=== PATIENT | male | born 1940 | race Caucasian/White ===

== ENCOUNTER → 2017-01-19 | Outpatient (CLI) | payer OTHER | LOC: FIMAGING 16:04 | PROVIDERS: ATTEND Psychiatry & Neurology Neurology | DX: M51.36 Other intervertebral disc degeneration, lumbar region (principal); G62.9 Polyneuropathy, unspecified; Z98.1 Arthrodesis status ==

== ENCOUNTER → 2018-01-10 | Outpatient (CLI) | payer OTHER | LOC: BHFA 15:30 | PROVIDERS: ATTEND Internal Medicine Cardiovascular Disease | DX: R53.1 Weakness (principal) ==

== ENCOUNTER 2018-06-23 13:48 | Observation (INO) | payer OTHER ==
[2018-06-23] MEDS ORDERED: levOFLOXACIN 500 MG/DEXTROSE 100 ML IV ONE (14:07)
[2018-06-23] MEDS ORDERED: LIDOCAINE 1% 2 ML INJ ID PRN (14:08)
[2018-06-23] MEDS ORDERED: LR 1,000 ML IV ONE (14:08)
[2018-06-23] MEDS ORDERED: LIDOCAINE 2% JELLY 20 ML (UROJECT) ONE (14:48)
[2018-06-23] MEDS ORDERED: IOPAMIDOL (ISOVUE-M 300) 15 ML VIAL ONE (14:48)
--- NOTE | 2018-06-23 15:02 | PDANEPAE ---
ANE History of Present Illness bladder stones, here for cystoscopy and removal stones ANE Past Medical History - Cardiovascular History Hx Hypertension: Yes Hx Arrhythmias: No Hx Chest Pain: No Hx Coronary Artery / Peripheral Vascular Disease: Yes Hx CHF / Valvular Disease: No Hx Palpitations: No - Pulmonary History Hx COPD: No Hx Asthma/Reactive Airway Disease: No Hx Recent Upper Respiratory Infection: No Hx Oxygen in Use at Home: No Hx Sleep Apnea: No Sleep Apnea Screening Result - Last Documented: Negative Pulmonary History Comment: distant history of heavy tobacco use, none for 20 years. 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 cognitive decline in the recent past, no formal diagnoses - Endocrine History Hx Diabetes: No Hypothyroid: No Hyperthyroid: No Obesity: no - Renal History Hx Renal Disorders: Yes Renal History Comment: current kidney stones. hx of bph with green light laser with Melouk - Liver History Hx Hepatic Disorders: No - Neurological & Psychiatric Hx Hx Neurological and Psychiatric Disorders: Yes Neurological / Psychiatric History Comment: anxiety, depression - Cancer History Hx Cancer: No - Congenital Disorder History Hx Congenital Disorders: No - GI History Hx Gastrointestinal Disorders: Yes Gastrointestinal History Comment: hx of coloscopies q3 yrs x 30 yrs for family hx of colon CA. has had colon polyps removed every time last one being 11/2017 - Other Health History Other Health History: wears readers. wet macular degeneration. hearing aides bilaterally. 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 trigger finger release x8. left hand carpal tunnel surgery in 2013. greenlight laser procedure 03/15/2014 with Melouk. colonoscopies q3 yrs for the last 30 yrs. right eye cataract surgery 2014 ANE Review of Systems Review of Systems: - Exercise capacity METS (RN): 4 METS ANE Patient History - Allergies Allergies/Adverse Reactions: acetaminophen [From Percocet] Allergy (Verified 06/22/18 11:14) Vomiting Iodinated Contrast- Oral and IV Dye Allergy (Verified 06/22/18 11:14) lisinopril [From Zestril] Allergy (Verified 06/22/18 11:14) Rash oxycodone [From Percocet] Allergy (Verified 06/22/18 11:14) Vomiting - Home Medications Home Medications: Aflibercept [Eylea] 2 mg IO Q30D 06/17/18 [Last Taken 06/24/17] Carboxymethylcellulose 1% [Refresh Celluvisc (*)] 1 drop EACHEYE DAILY PRN 06/17 [Last Taken 1 Day Ago ~06/22/18] FLUoxetine [Prozac 20 MG (*)] 40 mg PO DAILY 06/17/18 [Last Taken 1 Day Ago ~] - NPO status NPO Since - Liquids (Date): 06/23/18 NPO Since - Liquids (Time): 12:00 NPO Since - Solids (Date): 06/22/18 NPO Since - Solids (Time): 16:00 - Smoking Hx Smoking Status: Former smoker - Family Anes Hx Family Hx Anesthesia Complications: none ANE Labs/Vital Signs - Vital Signs Blood Pressure: 175/94 Heart Rate: 66 Respiratory Rate: 18 O2 Sat (%): 97 Height: 170.18 cm Weight: 76.204 kg ANE Physical Exam - Airway Neck exam: decreased ROM Mallampati Score: Class 3 Mouth exam: normal dental/mouth exam - Pulmonary Pulmonary: no respiratory distress, reduced air movement - Cardiovascular Cardiovascular: regular rate and rhythym - ASA Status ASA Status: III ANE Anesthesia Plan Anesthesia Plan: GA w LMA (Start 18g PIV pre-induction) Total IV Anesthesia: Yes
--- NOTE | 2018-06-23 15:18 | PDHPUP ---
History & Physical Update H&P update statement: This history and physical update is based on an assessment of the patient which was completed after admission or registration (within 24 hours), but prior to the surgery/procedure. H&P update: no change in patient's condition since H&P completed
--- NOTE | 2018-06-23 15:22 | POSTOPPROG ---
Post Op Note Date of Operation: 06/23/18 Surgeon: Leah Morillo (# [id number]) Pre-op Diagnosis: Prostatic urethral calculi, BPH Post-op Diagnosis: Prostatic urethral calculi, BPH Procedure: Cysto w/ calculi laser litho, TURP Findings: See op note Inf/Abcess present in the surg proc area at time of surgery?: No EBL: Minimal Complications: None Specimen(s): Prostate tissue
[2018-06-23] MEDS ORDERED: PROPOFOL 200 MG/20 ML VIAL ONE (15:29)
[2018-06-23] MEDS ORDERED: fentaNYL 100 MCG/2 ML INJ ONE (15:30)
[2018-06-23] MEDS ORDERED: PROPOFOL/EMULSION 500 MG/50 ML BOTTLE IV ONE (15:35)
[2018-06-23] MEDS ORDERED: HYDROCODONE/APAP 5/325 TAB PO PRN (16:41)
[2018-06-23] MEDS ORDERED: ONDANSETRON 4 MG/2 ML VIAL IVP PRN (16:41)
[2018-06-23] MEDS ORDERED: PROMETHAZINE HCL 25 MG/ML INJ IVP PRN (16:41)
[2018-06-23] MEDS ORDERED: LIDOCAINE 2% JELLY 5 ML TUBE TP PRN (16:41)
[2018-06-23] MEDS ORDERED: OPIUM/BELLADONNA ALKALO SUPP PR PRN (16:41)
[2018-06-23] MEDS ORDERED: HYDROmorphONE/DILAUDID 1 MG/ML INJ IVP PRN (16:41)
[2018-06-23] MEDS ORDERED: CARBOXYMETHYLCELLULOSE 1% 0.4 ML DROPERETTE EACHEYE PRN (16:42)
[2018-06-23] MEDS ORDERED: LABETALOL HCL 5 MG/ML 20 ML MDV IVP ONE (16:47)
[2018-06-23] MEDS ORDERED: MEPERIDINE 25 MG/0.5 ML AMP IVP PRN (16:49)
[2018-06-23] MEDS ORDERED: LR 500 ML IV PRN (16:49)
[2018-06-23] MEDS ORDERED: fentaNYL 100 MCG/2 ML INJ IVP PRN (16:49)
[2018-06-23] MEDS ORDERED: NALOXONE HCL 0.4 MG/ML INJ IVP PRN (16:49)
[2018-06-23] MEDS ORDERED: LABETALOL HCL 20 MG/4 ML INJ IVP PRN (16:49)
--- NOTE | 2018-06-23 16:49 | POSTANESTH ---
Post Anesthetic Evaluation Cardiovascular Status: Normal, Stable Respiratory Status: Normal, Stable Level of Consciousness/Mental Status: Can Participate in Eval Pain Control: Adequate, Prn Tx Ordered Nausea/Vomiting Control: Adequate, Prn Tx Ordered Complications Possibly Related to Anesthesia: None Noted (Baseline BP 160/90 and if nt symtomatic maybe sent to the floor within 20 pts of baseline. If needig tx, labetalol is ordered)
[2018-06-23] MEDS: D5W 1/2 NS 1,000 ML IV SCH (18:16)
--- NOTE | 2018-06-23 19:08 | GOP ---
DATE OF OPERATION: 06/23/2018 SURGEON: Leah Morillo MD ANESTHESIA: Laryngeal mask. PREOPERATIVE DIAGNOSIS: 1. Prostatic urethral calculi. 2. Benign prostate hyperplasia with obstruction. POSTOPERATIVE DIAGNOSIS: 1. Prostatic urethral calculi. 2. Benign prostate hyperplasia with obstruction. PROCEDURE PERFORMED: 1. Cystourethroscopy with laser lithotripsy of the prostatic urethral calculi. 2. Transurethral prostate resection. FINDINGS: Several sizable prostatic urethral calculi that were primarily adherent to the floor of th e prostate in the midgland region. Some residual BPH was also noted. SPECIMENS: Prostate tissue. ESTIMATED BLOOD LOSS: Minimal. INDICATIONS: This gentleman presented recently with irritative voiding symptoms. Cystoscopy reveale d multiple sizable prostatic urethral calculi adherent to the prostatic mucosa. There was also some recurrent and/or residual BPH following prior GreenLight photovaporization of prostate. It was recom mended the patient undergo intraoperative management. The indications for the procedures as well as potential risks and complications were discussed with the patient preoperatively. He appeared to und erstand, his questions were answered, and he wished to proceed. Written informed surgical consent wa s thereafter obtained. DESCRIPTION OF PROCEDURE: The patient was brought to the operating room and administered laryngeal m ask anesthesia. He was carefully placed in the dorsal lithotomy position on the cystoscopic table. The genital area was sterilely prepped with Betadine scrub and paint, and then draped in usual steril e fashion. Cystoscopy was performed with a 30-degree lens through a 22-Andorran sheath. Anterior uret hra revealed no abnormalities. Posterior urethra revealed some sizable prostatic urethral calculi at the 6 o'clock position, along the floor of the prostate in the midgland region. These calculi appea red to be adherent to the underlying urothelium. There was also some calculi that were tucked away i n a crevice between the right lateral lobe and the floor of the prostate. There was some evidence of visually obstructing prostate tissue that was either recurrent and/or residual following prior Green Light vaporization. The bladder neck was patent. The bladder was moderately trabeculated, but witho ut areas of abnormal erythema, tumors, or foreign bodies. Ureteral orifices were normal in regard to shape and position along the trigone. I decided to address the prostatic calculi 1st. A 5-Andorran open-ended ureteral catheter was passed t hrough the cystoscope, followed by a 550 micron holmium laser fiber. The laser was used to perform l ithotripsy of the prostatic urethral calculi until there was no evidence of residual stones. There w ere some stone material embedded along the floor of the prostate in the midgland region. I ablated t hese stones as well as possible. Due to concerns, there might be some remaining imbedded prostatic calculi that might cause future pro blems, I decided to perform a limited transurethral prostate resection. A 26-Andorran resectoscope she ath with visual obturator and a 30-degree lens were inserted. This was followed by the Ocision rese ctoscope in a standard loop. Using passive continuous flow normal saline, I then systematically rese cted the prostate adenoma. No additional calculi were seen within this prostatic adenoma. Care was taken not to be overly aggressive with this resection because of concern that the patient might have some underlying neurological bladder dysfunction. A button electrode was then used to fulgurate the prostatic fossa for postoperative hemostasis. At the conclusion of this portion of the procedure, th e prostatic fossa was widely patent, no resection had taken place proximal to the bladder neck nor di stal to the verumontanum, and all prostate chips and calculi had been retrieved from the bladder usin g an Radhaik evacuator. Ureteral orifices were noted to be preserved at the end the case as well. The instruments were removed and a 22-Andorran, 3-way Peralta catheter inserted with the use of a catheter g uide. 30 cc of sterile water was placed in the balloon. The catheter irrigated manually and the ret urn was light pink. The catheter was connected to bag drainage as well as continuous normal saline i rrigation. The patient was awakened, transferred to his bed, then taken to the recovery room. He to lerated the procedure well overall. COMPLICATIONS: None. ESTIMATED BLOOD LOSS: Minimal. DISPOSITION: He was transferred to the recovery room in stable condition and [facility] for continuous irrigation. /[id number]/MODL
[2018-06-24] MEDS: D5W 1/2 NS 1,000 ML IV SCH (08:08)
[2018-06-24 08:32] VITALS: BP 149/76
--- NOTE | 2018-06-24 08:57 | SOAPPROG ---
SOAP Progress Note Assessment/Plan: Assessment: POD 1 s/p cystoscopic laser lithotripsy of prostatic urethral calculi & limited TURP - stable. Plan: D/C home after voiding trial. Subjective: No complaints. Objective: Vital Signs Temp Pulse Resp BP Pulse Ox 36.7 C 67 14 149/76 H 96 06/24/18 07:55 06/24/18 07:55 06/24/18 07:55 06/24/18 07:55 06/24/18 07:55 06/23/18 06/24/18 06/25/18 05:59 05:59 05:59 Intake Total 1398 Output Total 2009 Balance -612 Physical Exam - Physical Exam General Appearance: WD/WN, alert, no apparent distress Abdomen: soft Male Genitalia: other (urine clear via Peralta) Neuro/Psych: alert, normal mood/affect ICD10 Worksheet Patient Problems: Problems Problem Status Onset BPH (benign prostatic hyperplasia) Acute Calculi, prostate Acute - ICD10 Problem Qualifiers (1) Calculi, prostate (2) BPH (benign prostatic hyperplasia)
[2018-06-24] MEDS ORDERED: FLUoxetine 20 MG CAP PO SCH (09:00)
--- NOTE | 2018-06-24 10:01 | ASMTCMCOM ---
CM Note CM Note Notes: Pt admitted for lithotripsy and TURP, and has hx of neurological issue with lower legs that requires he walk with a cane. Spoke with pt and in the room as well as with RN. Pt's daughter is a surgeon and she arranged for PCP Yeimi Barney MD to order in home baby sitter visits after admission. Left a message for RN reservoir caretaker in Savita's office to confirm that agency had been arranged. Also checked with [facility] and they don't have him on their docket. No therapies ordered inpatient. D/C plan TBD. Date Signed: 06/24/2018 10:00 AM Electronically Signed By:Yeimi Bhat
--- NOTE | 2018-06-24 12:24 | ASMTDCNOTE ---
Case Management Discharge Discharge Order Complete? Answers: Yes Patient to Obtain Answers: via Family Medications Transportation Arranged Answers: Family/Friends Faxed Final Orders Answers: Yes Agency/Facility Transfer Answers: Yes Report Printed & Faxed to Receiving Agency Family Notified Answers: Yes Notes: in the room Discharge Comments Notes: Pt discharged home today and PCP physician had already arranged home care with [facility]. Referrals updated with [facility]. No further CM needs noted at this time. Date Signed: 06/24/2018 12:23 PM Electronically Signed By:Yeimi Bhat
--- NOTE | 2018-06-24 12:27 | ASMTLACE ---
JEN Length of stay for Answers: 1 day current admission Acuity / Level of Answers: No Care: Did the patient have an inpatient admission? Comorbidities - select Answers: Opioid dependence all that apply / Chronic pain Other Notes: HTN # of Emergency department Answers: 0 visits in the last 6 months Social determinants Answers: Mental health diagnosis (anxiety, depression, pers onality disorders, etc.) Score: 9 Date Signed: 06/24/2018 12:27 PM Electronically Signed By:Yeimi Bhat
[2018-07-17] MEDS ORDERED: AFLIBERCEPT IO SCH (09:00)
== END 2018-06-24 12:15 | disposition home or self-care (01) ==
LOC: F1N 13:48
PROVIDERS: ADMIT Specialist; ATTEND Specialist
DX: N21.1 Calculus in urethra (principal); N40.1 Benign prostatic hyperplasia with lower urinary tract symptoms; N39.41 Urge incontinence; R39.15 Urgency of urination; R33.9 Retention of urine, unspecified; I10 Essential (primary) hypertension; E78.5 Hyperlipidemia, unspecified; Z82.49 Family history of ischemic heart disease and other diseases of the circulatory system; Z83.3 Family history of diabetes mellitus; Z80.0 Family history of malignant neoplasm of digestive organs; Z80.51 Family history of malignant neoplasm of kidney; Z87.891 Personal history of nicotine dependence
CPT/HCPCS: 52214; 52630; C1758; J1956; J2704; J3010; Q9967